=== PATIENT | male | born 1985 | race Caucasian/White ===

== ENCOUNTER → 2016-12-13 | Day surgery (SDC) | payer OTHER ==
--- NOTE | 2016-12-12 12:09 | HISTORY & PHYSICAL EXAMINATION ---
DATE OF ADMISSION: 12/13/2016 REASON FOR ADMISSION: Bronchoscopy. REASON FOR BRONCHOSCOPY: Cough. HISTORY OF PRESENT ILLNESS: A 31-year-old male followed in the outpatient office for history of cough, chest pain, dyspnea, and abnormal CAT scan. Relevant past medical history includes GERD, seasonal allergies, and obesity. He is a lifelong nonsmoker, although his does smoke. The patient does report a history of "hyperactive airway." He was diagnosed as a teenager with this for which he was prescribed an albuterol inhaler as a senior in high school. He reported his symptoms were generally well controlled; however, he would develop some dyspnea and wheeze with exposure to strong sense/odor/perfume such as with laundry detergent isle of the grocery restore or in [employer]. He managed his symptoms by avoidance of triggers and never required his rescue inhaler on a daily basis. In 2005, after moving from [place] to [facility], he reported increased frequency of respiratory infections. This is since resolved. He denies any history of pneumonia, hospitalization for respiratory failure, DVT/PE. 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 He received annual TB testing. His last test he stated he had a diffuse skin reaction; however, this was read as negative by his physician. Beginning September 2006, the patient developed severe right-sided anterior lower rib pain. He reported times in which the pain would radiate to his back. Pain is provoked with deep breaths and activity, such as bending forward. Additionally, pain is reproduced with deep palpation between beneath the ribs on the right. When he was first symptomatic, he reports this discomfort came on fairly suddenly, and he was evaluated in the [facility]. He states he underwent a GI workup at that time. This included an ultrasound of the gallbladder as well as a CT angiogram of the abdomen and pelvis. CT of abdomen and pelvis 09/19/2016 was unremarkable. I do not have these results or any records of the labs to include LFTs or ultrasound images. He was also told he may have acid reflux and is currently prescribed omeprazole and famotidine without any significant improvement. One to 2 days after his right sided pain began, he developed symptoms of cough productive of yellow/brown sputum in quantities approximately the size of a quarter, producing 3-10 times daily. He denied any associated hemoptysis. He reported associated symptoms of shortness of breath with diffuse wheeze and intermittent fevers and chills. He stated that his wheezing is worse in the evenings and this is confirmed by his . He reported a chest x-ray at that time was unremarkable. The patient presented to the Emergency Department in a second instance for additional visit secondary to the severity of his right-sided pain, cough, and now dyspnea. He reported that he was evaluated in the [facility] as well. The patient reports that at some point, he was referred to a GI specialist; however, en route to the office, he became ill and "past though" and was sent directly again to the Emergency Department and he was never able to follow up with the GI as an outpatient. CT of the chest 09/22/2016 with contrast described scattered ground-glass densities in an irregular density in the central aspect of the right upper lobe abutting the posterior aspect of the minor fissure. There is a patchy density in the posterior right lobe and moderate adenopathy with prominent right hilar node measuring 2.4 x 1.6 cm as well as an enlargement of right peritracheal, infracarinal, and precarinal area. The patient was referred to Dr. Bridges in [place] and at that time he was prescribed a course of Levaquin 500 mg and a prednisone taper. The patient reported improvement in the cough and his cough is no longer productive at this time. The right-sided chest pain was not affected. CT of the chest was repeated 10/31/2016 in which the adenopathy had resolved. There was note of an oblong parenchymal opacity in the superior segment of the right lower lobe measuring 9 x 3 mm in size. Ground-glass changes had also resolved. There is no evidence of pleural thickening or involvement of the pleura. Over the mid November month, he reported that his cough returned and symptoms of dyspnea and wheeze have persisted. He described symptoms of general weakness with intermittent diaphoresis with temperatures greater than 100 degrees Fahrenheit orally. He felt that he was quite run down with general malaise and was having difficulty lifting his 30-pound daughter. His primary care physician did give him a prescription for Ventolin inhaler which he states is "somewhat" palliative. He was prescribed a second course of antibiotic, which he believes was amoxicillin as well as a prednisone taper as well. His right-sided pain was unaffected. The patient is a lifelong nonsmoker. His does smoke; however, she tries not to smoke in the house. He has noticed some increased symptoms with exposure to her cigarette smoke. He denied any prior service in the . He is a lifelong [place] resident. He lives with his and 4 children in a trailer, which has been renovated and converted into a larger home. The home does house his family as well as 2 dogs, which they have had for approximately 6 years. He denies any mold or mildew. They deny any travel. He uses alcohol very rarely. He denies any history of illicit or IV drug use. He does report history of seasonal allergies and takes Sudafed on a regular basis. He states allergies are most bothersome during changes in the seasons. He denies any prior history of cardiac disease; however, reports that he does have a heart murmur which was diagnosed in childhood. He does report family history of lung cancer, stating that 3 individuals on his father's side have had this diagnosis. Other family history is notable for his mother who had DVT in the upper extremity as well as leg as well as asthma. He states that none of these children had been diagnosed with any pulmonary problems. PAST MEDICAL HISTORY: 1. Hilar adenopathy. 2. Anxiety. 3. Backache. 4. Bronchitis. 5. Chest pain. 6. Depression. 7. Gastroesophageal reflux disease. 8. Shortness of breath. 9. Seasonal allergies. 10. Obesity. PAST SURGICAL HISTORY: 1. Knee surgery. FAMILY HISTORY: 1. Diabetes. 2. Glaucoma. 3. Cardiac disorder. 4. Hypertension. SOCIAL HISTORY: 1. The patient is . 2. The patient is a lifelong nonsmoker. 3. The patient reports rare alcohol consumption. CURRENT MEDICATIONS: 1. Ativan 0.5 mg oral tablet: Take 1 tablet daily as directed. 2. Celexa 20 mg oral tablet: Take 1 tablet daily. 3. Diclofenac sodium 50 mg oral tablet delayed release: Take 1 tablet every 6 hours as needed. 4. Hydroxyzine hydrochloride 25 mg oral tablet: Take 1 tablet 3 times daily as needed. 5. Levofloxacin 500 mg oral tablet: Take 1 tablet for 7 days. 6. Motrin 800 mg tablet: Take 1 tablet 3 times daily as needed. 7. Nexium 20 mg oral capsule delayed release: Take 1 capsule once daily. 8. Omeprazole 20 mg oral capsule delayed release: Take 1 capsule daily. 9. Percocet 5/325 mg oral tablet: Take 1 tablet every 4-6 hours as needed. 10. Prednisone 10 mg oral tablet: Take 2 tablets daily as directed. 11. Ventolin HFA 108 mcg per ACT inhalation aerosol solution: Inhale 2 puffs every 4 hours as needed. 12. Sudafed - take as directed. ALLERGIES: 1. No known drug allergies. PHYSICAL EXAMINATION: VITAL SIGNS: Height 5 foot 9 inches, weight 168 pounds; blood pressure 130/80, right upper extremity, sitting; temperature 97.7 degrees Fahrenheit, oral; respirations - 20 respirations per minute; heart rate 97 beats per minute; oxygen saturation 97% on room air/21% FIO2. CONSTITUTIONAL: Well-developed, well-nourished, obese male. No acute distress. HEAD: ____ facial symmetry. EYES: EOMI, PERRLA, no conjunctival injection. MOUTH: Mallampati II. No erythema, exudate, or postnasal drip. NECK: Trachea midline without adenopathy or masses. RESPIRATORY: Nonlabored respirations. Diminished breath sounds bilaterally. Scant end-expiratory wheeze auscultated throughout. No rhonchi. No clubbing or cyanosis. CARDIOVASCULAR: Regular rate and rhythm. No murmurs, rubs or gallops. EXTREMITIES: +2 radial pulses distally. Less than 1 second capillary refill peripherally. INTEGUMENTARY: No areas of petechiae or bruising. Multiple tattoos noted. MUSCULOSKELETAL/EXTREMITIES: Moving and developed symmetrically without any peripheral edema or calf tenderness bilaterally. NEUROLOGIC: Alert and oriented. Data recall intact. Appropriate affect. REVIEW OF SYSTEMS: 1. Positive for fevers, malaise, and chills, and fatigue. EYES: Negative. ENT: Denies otalgia, epistaxis, pharyngitis, rhinorrhea, or vocal hoarseness. CARDIOVASCULAR: Denies any palpitations, chest pain. RESPIRATORY: Positive for cough, wheeze, dyspnea on exertion. Denies PND. GASTROINTESTINAL: Positive for abdominal pain on the right as noted in the HPI. Denies constipation, emesis, diarrhea, or melena. MUSCULOSKELETAL: Positive for arthralgias. INTEGUMENTARY: Positive for itching. NEUROLOGIC: Negative. HEMATOLOGIC/LYMPHATIC: Positive for swollen glands but negative for easy bleeding or bruising. ASSESSMENT AND PLAN: A 31-year-old male evaluated in the outpatient office for symptoms of cough, dyspnea, and wheeze, recurrent despite antibiotic and steroid. Additionally, he reports right-sided upper quadrant, lower chest pain. 1. Productive cough/dyspnea/wheeze with history of abnormal CT. - Agree with antibiotic and steroid. - Once completed, obtain blood work to include CBC with diff, BNP, LFTs, hepatitis, IgG, IgE - Repeat CT January 2017. - Fiberoptic bronchoscopy with flexible for lavage - QVAR 80 one puff b.i.d. Continue with p.r.n. albuterol. - Will need PFTs post-testing. 2. Right upper quadrant pain: - Agree with further pursuit of GI workup. Patient reviewed and time and agreed upon MTDD
[2016-12-13] VITALS (13 sets, daily range): BP systolic 121–149; BP diastolic 68–99; PULSE 71–98; TEMP 36.6–36.9; O2SAT 93–100; Ht 175.3 cm; Wt 118.0 kg
[~2016-12-13] VITALS: Ht 175.3 cm; Wt 118.0 kg
[~2016-12-13] MED LIST: ALBU4TAB10 INH; CITA10TA8 PO; FENTANYL CITRATE INJ 50 MCG/1 ML 2 ML VIAL IV ONE; LIDOCAINE 4% W/AFRIN NASAL SOLN 4ML ONE; LIDOCAINE HCL 2% LOCAL 50ML VIAL INFIL ONE; LORA-741 PO; MIDAZOLAM HCL 5 MG/ML 1 ML VIAL IV ONE; NURSING VERBAL MED ORDER ONE; OXYC-57 PO; PHEN37.585 PO; SODIUM CHLORIDE 0.9% 1000ML 1,000 ML IV SCH
--- NOTE | 2016-12-13 09:20 | History & Physical Bridge Note ---
H&P Re-Evaluation Bridge Note: I have examined the patient, reviewed the History & Physical and in the interval since the performance of the History & Physical I have noted the following changes of clinical significance: No changes noted
--- NOTE | 2016-12-13 09:20 | Procedure Note ---
Pre-Mod Sedation Assessment General Date of Moderate Sedation: December 13, 2016. Vital Signs: Vital Signs Past 12 Hours Date Time Temp Pulse Resp B/P Pulse Ox O2 Delivery O2 Flow Rate FiO2 12/13/16 08:14 36.8 73 18 149/82 97 Room Air Review Cardiovascular: regular rate, rhythm, no edema, no gallop, no JVD, no murmur, normal peripheral pulses Abdomen: normal bowel sounds, non tender, soft, no organomegaly, no pulsatile mass, normal rectal exam, occult blood negative Lungs: chest non-tender, lungs clear, normal breath sounds, no respiratory distress, no accessory muscle use Airway Class: I Pre-Sedation Airway Assessment Oral Cavity: WNL Able to Visualize Vocal Cords: Yes Short Thick Neck: Yes Hx of Sleep Apnea: No Smoking Status: Never Smoker Mallampati Classification: Class I ASA Classification: Class I Procedure Planning Contraindications-for Mod Sed: None Yes Notes The planned sedation has been discussed with the patient and consent obtained. I have identified the patient, determined the appropriateness of sedation and have assessed the patient immediately prior to the procedure. All medicine(s) and interventions are by my order.
--- NOTE | 2016-12-13 10:17 | Discharge Instructions ---
Discharge Instructions Date of Service December 13, 2016. Admission Reason for Admission: Chronic Cough Discharge Discharge Diagnosis / Problem: Chronic cough with associated sinusitis Discharge Goals Goal(s): Diagnostic testing Activity Recommendations Activity Limitations: resume your previous activity . Instructions / Follow-Up Instructions / Follow-Up Follow up with Pulmonary Provider Amparo Bills Current Hospital Diet Patient's current hospital diet: Discharge Diet Recommended Diet: Regular Diet Procedures Procedures Performed: Bronchoscopy with bronchial lavage of the right middle lobe Pending Studies Studies pending at discharge: yes List of pending studies: micorbiology and fungal analysis of the bronchial lavage Medical Emergencies . Who to Call and When: Medical Emergencies: If at any time you feel your situation is an emergency, please call 911 immediately. . Non-Emergent Contact Non-Emergency issues call your: Transformation Coach Call Non-Emergent contact if: temperature is above 101.5 . . "Provider Documentation" section prepared by Jose Maria Garcia. . VTE Core Measure Inpt VTE Proph given/why not?: Treatment not indicated
--- NOTE | 2016-12-13 10:22 | Bronchoscopy Procedure Note ---
Bronchoscopy Procedure Note Procedure: Bronchoscopy, conscious sedation, BAL RML Consent: Obtained through the patient placed into the chart Preprocedural diagnosis: Chronic Cough Postprocedural diagnosis: Chronic cough with sever rhinitis Start time: 939 End time: 952 Total time: 13mins Analgesia: 2% liquid lidocaine: Via nebulizer 4% gel lidocaine: Via right naris 2% liquid lidocaine: Via bronchoscopy Sedation: Versed IV: 5 mg Fentanyl IV: 100 g Procedure: The Onzo video bronchoscope was used for this procedure and initially passed down through the right naris Right naris: anatomically within normal limits Posterior naris: diffuse erythema and edema with copeus mucus even covering the internal auditory canals posterior oropharynx: diffuse cobble stoning Glottis: Anatomically within normal limits Vocal cords: Proper abduction and abduction, anatomically within normal limits Subglottis/trachea/Martha: Anatomically within normal limits Right bronchial tree: Right mainstem bronchus: Anatomically within normal limits Right upper lobe: Anatomically within normal limits Bronchus intermedius: Anatomically within normal limits Right middle lobe: Anatomically within normal limits Right lower lobe: Anatomically within normal limits Findings: No significant findings noted Left bronchial tree: Left mainstem bronchus: Anatomically within normal limits Left upper lobe: Anatomically within normal limits Lingula: Anatomically within normal limits Left lower lobe: Anatomically within normal limits Findings: No significant findings noted Bronchial alveolar lavage: 60cc lavage of the RML EBL: none Complications: None Follow-up: with the [facility] pulmonary department
--- NOTE | 2016-12-13 10:22 | Procedure Note ---
Post-Moderate Sedation Plan General Date of Moderate Sedation December 13, 2016. Vital Signs: Vital Signs Past 12 Hours Date Time Temp Pulse Resp B/P Pulse Ox O2 Delivery O2 Flow Rate FiO2 12/13/16 10:00 95 18 126/81 100 Nasal Cannula 4.0 12/13/16 09:55 98 18 124/88 100 Nasal Cannula 6.0 12/13/16 09:50 91 18 136/99 100 Nasal Cannula 6.0 12/13/16 09:45 92 17 130/80 100 Nasal Cannula 6.0 12/13/16 09:40 75 16 132/81 100 Nasal Cannula 6.0 12/13/16 09:35 83 15 139/85 100 Nasal Cannula 6.0 12/13/16 09:30 76 14 132/85 100 Nasal Cannula 12/13/16 09:25 76 14 135/77 100 Room Air 12/13/16 08:14 36.8 73 18 149/82 97 Room Air Review - Discharge Plan Post Moderate Sedation Plan: On clinical assessment, the patient appears to have tolerated the conscious sedation without complications. Patient is recovering as anticipated. Patient will continue to be monitored by nursing and may be discharged when conscious sedation discharge criteria are met.
== END | disposition home or self-care (01) ==
LOC: C.ACU 07:01
PROVIDERS: ATTEND Internal Medicine Critical Care Medicine
DX: R05 Cough (principal); J31.0 Chronic rhinitis; F32.9 Major depressive disorder, single episode, unspecified; F41.9 Anxiety disorder, unspecified; Z86.718 Personal history of other venous thrombosis and embolism; Z79.01 Long term (current) use of anticoagulants; E66.9 Obesity, unspecified; Z83.3 Family history of diabetes mellitus; Z83.511 Family history of glaucoma; Z82.49 Family history of ischemic heart disease and other diseases of the circulatory system

== ENCOUNTER → 2017-04-11 | Outpatient (CLI) | payer BC ==
[~2017-04-11] MED LIST changes: -FENTANYL CITRATE INJ 50 MCG/1 ML 2 ML VIAL IV ONE; -LIDOCAINE 4% W/AFRIN NASAL SOLN 4ML ONE; -LIDOCAINE HCL 2% LOCAL 50ML VIAL INFIL ONE; -MIDAZOLAM HCL 5 MG/ML 1 ML VIAL IV ONE; -NURSING VERBAL MED ORDER ONE; -SODIUM CHLORIDE 0.9% 1000ML 1,000 ML IV SCH
[2017-04-11 16:20] LABS: BASO % 0.5 %; BASO ABS # 0.04 K/uL (0-0.2); COMPLETE YES; EOS % 7.5 %; HEMATOCRIT 45.2 % (42-52); IG% 0.2 %; LYMPH % 24.4 %; LYMPH ABS # 2.15 K/uL (1.2-3.4); MEAN CELL VOLUME 86.4 fL (80-100); MEAN CORPUSCULAR HEMOGLOBIN 29.3 pg (25-34); MEAN CORPUSCULAR HGB CONC 33.8 g/dl (32-36); MONO % 5.1 %; NEUT % 62.3 %; PLATELET COUNT 304 K/uL (130-400); RED BLOOD COUNT 5.23 M/uL (4.7-6.1); WHITE BLOOD COUNT 8.81 K/uL (4.8-10.8)
== END | disposition home or self-care (01) ==
LOC: C.LAB1850 15:34
PROVIDERS: ATTEND Physician Assistant
DX: R05 Cough (principal); R61 Generalized hyperhidrosis